=== PATIENT | male | born 1980 | race Caucasian/White ===

== ENCOUNTER 2021-09-30 22:25 | Emergency (ER) | payer BC ==
[~2021-09-30] VITALS: Ht 180.3 cm; Wt 79.4 kg
[2021-09-30 22:58] VITALS: BP_SYST 127
[2021-10-01 00:50] VITALS: BP_SYST 127
== END 2021-10-01 00:51 ==
LOC: SED 22:25
DX: F10.129 Alcohol abuse with intoxication, unspecified (principal); Y90.6 Blood alcohol level of 120-199 mg/100 ml; R03.0 Elevated blood-pressure reading, without diagnosis of hypertension
CPT/HCPCS: 99283